=== PATIENT | male | born 1975 | race American Indian/Alaskan Native ===

== ENCOUNTER 2017-01-23 00:54 | Emergency (ER) | payer MEDICAID ==
[2017-01-23 00:54] VITALS: BMI 28.1
[2017-01-23 01:27] VITALS: RESP 16; TEMP 97.8
--- NOTE | 2017-01-23 02:22 | ED PDOC ---
HPI: Back Time Seen by Provider: 01/23/17 02:20 Chief Complaint (Nursing): Back Pain Chief Complaint (Provider): heroin abuse History Per: Patient Additional Complaint(s): pt states he called ems tonight because he took too much heroin. denies specific c/o at this time. Past Medical History Reviewed: Historical Data, Nursing Documentation, Vital Signs Vital Signs: Last Vital Signs Temp 97.8 F 01/23/17 01:25 Pulse 74 01/23/17 01:25 Resp 16 01/23/17 01:25 BP 92/60 L 01/23/17 01:25 Pulse Ox 95 01/23/17 01:25 - Medical History PMH: Anxiety, Bipolar Disorder, Depression, Personality Disorder, Pneumonia, Schizophrenia, Seizures - Family History Family History: States: No Known Family Hx - Social History Current smoker - smoking cessation education provided: No Alcohol: Social Drugs: Opiates - Immunization History Hx Tetanus Toxoid Vaccination: No Hx Influenza Vaccination: No Hx Pneumococcal Vaccination: No - Home Medications Home Medications: Ambulatory Orders Medication Instructions Recorded Carbamazepine [Tegretol Xr] 200 mg PO TID #90 ter 05/18/15 Phenobarbital 64.8 mg PO BID #20 tab 05/18/15 Phenobarbital 60 mg PO BID #14 tab 06/15/15 carBAMazepine [TEGretol] 200 mg PO TID #20 tab 06/15/15 APAP/Dm Hydrobrom/Phenyleph 1 sgl PO Q6H PRN #20 sgl 06/27/15 [Dayquil Cold/Flu 325 mg-10 mg-5 mg] - Allergies Allergies/Adverse Reactions: Allergies Allergy/AdvReac Type Severity Reaction Status Date / Time haloperidol [From Haldol] AdvReac NAUSEA Verified 01/23/17 01:20 Review of Systems ROS Statement: Except As Marked, All Systems Reviewed And Found Negative Physical Exam - Reviewed Nursing Documentation Reviewed: Yes Vital Signs Reviewed: Yes - Physical Exam Appears: Positive for: Non-toxic, No Acute Distress Head Exam: Positive for: ATRAUMATIC, NORMAL INSPECTION, NORMOCEPHALIC Skin: Positive for: Normal Color, Warm, DRY Eye Exam: Positive for: EOMI (pinpoint pupils B/L) ENT: Positive for: Normal ENT Inspection Neck: Positive for: Normal, Painless ROM Cardiovascular/Chest: Positive for: Regular Rate, Rhythm Respiratory: Positive for: CNT, Normal Breath Sounds Gastrointestinal/Abdominal: Positive for: Normal Exam, Bowel Sounds, Soft. Negative for: Tenderness Extremity: Positive for: Normal ROM. Negative for: Tenderness Neurologic/Psych: Positive for: Oriented, Motor/Sensory Deficits, Other (drowsy , intoxicated) - ECG O2 Sat by Pulse Oximetry: 95 ED OBSERVATION Date of observation admission: 01/23/17 Time of observation admission: 02:25 - Observation admission statement Patient is being placed in observation because:: heroin abuse - Goals of Observation Goals of observation are:: sobriety - Progress Note Progress Note: 01/23/17 05:34 pt observed in ED for 4h w/o event. pt ambulatory steady gait. no signs of withdrawl. Disposition - Clinical Impression Clinical Impression: Heroin abuse - Patient ED Disposition Is Patient to be Admitted: No - Disposition Referrals: [facility] [Outside] Disposition: Routine/Home Disposition Time: 05:35 Condition: GOOD Instructions: Narcotic Abuse (ED)
[2017-01-23 05:25] VITALS: BP 108/55; PULSE 62; O2SAT 95
== END 2017-01-23 06:48 | disposition home or self-care (01) ==
LOC: H.ER 00:54
DX: F11.10 Opioid abuse, uncomplicated (principal); M54.9 Dorsalgia, unspecified; F20.9 Schizophrenia, unspecified; F31.9 Bipolar disorder, unspecified; F41.9 Anxiety disorder, unspecified

== ENCOUNTER 2017-04-12 13:57 | Observation (INO) | payer MEDICAID ==
[2017-04-12 13:57] VITALS: BMI 27.4
[2017-04-12] MEDS ORDERED: Sodium Chloride 0.9% 1,000 ML IV STA (14:20)
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
[2017-04-12 14:37] LABS: BASO # 0.1 K/uL (0.0-0.2); BASO % 0.8 % (0.0-2.0); EOS # 0.1 K/uL (0.0-0.7); EOS % 1.8 % (0.0-4.0); HEMOGLOBIN 13.1 g/dL (12.0-18.0); LYMPH # 1.4 K/uL (1.0-4.3); LYMPH % 21.6 % (20.0-40.0); MEAN CELL VOLUME 88.2 fl (80.0-94.0); MEAN CORPUSCULAR HEMOGLOBIN 29.4 pg (27.0-31.0); MEAN CORPUSCULAR HGB CONC 33.3 g/dL (33.0-37.0); MEAN PLATELET VOLUME 9.8 fl (7.2-11.7); MONO # 0.7 K/uL (0.0-0.8); MONO % 10.8 % (0.0-10.0); NEUT # 4.1 K/uL (1.8-7.0); RBC 4.44 Mil/uL (4.40-5.90); RED CELL DISTRIBUTION WIDTH 13.3 % (11.5-14.5); WHITE BLOOD COUNT 6.3 K/uL (4.8-10.8)
[2017-04-12] MEDS ORDERED: Naloxone 0.4 mg/ml Inj (Adult) IVP ONE (14:40)
[2017-04-12] MEDS ORDERED: Naloxone 0.4 mg/ml Inj (Adult) ONE (14:43)
[2017-04-12 14:52] LABS: BLOOD UREA NITROGEN 14 mg/dl (9-20); CALCIUM 9.1 mg/dL (8.4-10.2); GFR AFRICAN-AMERICAN > 60; GFR NON-AFRICAN AMERICAN > 60
[2017-04-12 17:55] LABS: SQUAMOUS EPITHIAL < 1 /hpf (0-5); URINE BILIRUBIN NEGATIVE (NEGATIVE); URINE BLOOD LARGE (NEGATIVE); URINE CLARITY SLIGHTY-CLOUDY (Clear); URINE COLOR AMBER (YELLOW); URINE GLUCOSE (UA) NEG (Normal); URINE LEUKOCYTE ESTERASE NEG Leu/uL (Negative); URINE NITRATE NEGATIVE (NEGATIVE); URINE PROTEIN 30 mg/dL (NEGATIVE); URINE UROBILINOGEN 0.2-1.0 mg/dL (0.2-1.0)
[2017-04-12 17:58] LABS: BARBITURATES, UR POSITIVE (NEGATIVE); BENZODIAZEPINES, UR NEGATIVE (NEGATIVE); OPIATES, UR POSITIVE (NEGATIVE); PHENCYCLIDINE, UR NEGATIVE (NEGATIVE)
--- NOTE | 2017-04-12 19:33 | ED PDOC ---
- Laboratory Results Result Diagrams: 04/12/17 14:30 04/12/17 14:30 - ECG O2 Sat by Pulse Oximetry: 95 (RA) Pulse Ox Interpretation: Normal Medical Decision Making Medical Decision Making: Time: 19:00 Initial impression: Substance abuse --Patient was transferred from Dr. Wynne to mi. --Pending blood work up. 815PM: Pt. has high CPK. PT. denies cocaine/crack abuse, states he only abuses heroin. Denies recent strenuous physical activity. Scribe Attestation: Documented by Lashaun Barclay, acting as a scribe for Jose Alfredo Johnson MD. Provider Scribe Attestation: All medical record entries made by the Scribe were at my direction and personally dictated by me. I have reviewed the chart and agree that the record accurately reflects my personal performance of the history, physical exam, medical decision making, and the department course for this patient. I have also personally directed, reviewed, and agree with the discharge instructions and disposition. Disposition - Clinical Impression Clinical Impression: Substance abuse, Rhabdomyolysis - POA Present On Arrival: None - Disposition Disposition: Hospitalized as Observation Patient Disposition Time: 20:15 Condition: STABLE
[2017-04-12] MEDS: Sodium Chloride 0.9% 2,000 ML IV SCH ×2 (20:17→21:51)
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
[2017-04-12 21:06] VITALS: TEMP 98.5
[2017-04-12] MEDS: Sodium Chloride 0.9% 1,000 ML IV SCH (22:37)
[2017-04-13 00:24] VITALS: O2SAT 96
[2017-04-13] MEDS: Sodium Chloride 0.9% 2,000 ML IV SCH ×4 (02:00→05:13)
[2017-04-13] MEDS: Sodium Chloride 0.9% 1,000 ML IV SCH ×2 (03:12→09:16)
[2017-04-13 07:43] VITALS: BP 121/73; PULSE 58; RESP 20
[2017-04-13 09:27] LABS: HEMOGLOBIN 12.6 g/dL (12.0-18.0); MEAN CELL VOLUME 89.5 fl (80.0-94.0); MEAN CORPUSCULAR HEMOGLOBIN 29.3 pg (27.0-31.0); MEAN CORPUSCULAR HGB CONC 32.8 g/dL (33.0-37.0); RBC 4.3 Mil/uL (4.40-5.90); RED CELL DISTRIBUTION WIDTH 13.4 % (11.5-14.5); WHITE BLOOD COUNT 4.1 K/uL (4.8-10.8)
--- NOTE | 2017-04-13 09:38 | CP.PCM.PN ---
Subjective - Date & Time of Evaluation Date of Evaluation: 04/13/17 Time of Evaluation: 09:30 - Subjective Subjective: Patient seen and evaluated bedside. Feeling weak and tired . Hemodynamically stable, afebrile CPk elevated [id number] Objective - Vital Signs/Intake and Output Vital Signs (last 24 hours): Temp Pulse Resp BP Pulse Ox 98.5 F 58 L 20 121/73 96 04/13/17 07:42 04/13/17 08:20 04/13/17 07:42 04/13/17 08:20 04/13/17 07:42 - Medications Medications: Current Medications Acetaminophen (Tylenol 325mg Tab) 650 mg PO Q4 PRN PRN Reason: Headache Acetaminophen (Tylenol 325mg Tab) 650 mg PO Q4 PRN PRN Reason: Pain, Mild (1-3) Clonidine HCl (Catapres) 0.1 mg PO BID [facility] Last Admin: 04/13/17 08:20 Dose: Not Given Famotidine (Pepcid) 20 mg PO BID [facility] Last Admin: 04/13/17 08:16 Dose: 20 mg Sodium Chloride (Sodium Chloride 0.9%) 2,000 mls @ 1,000 mls/hr IV .Q2H [facility] Stop: 04/13/17 19:59 Last Admin: 04/13/17 05:13 Dose: Not Given Sodium Chloride (Sodium Chloride 0.9%) 1,000 mls @ 150 mls/hr IV .Q6H40M [facility] Stop: 04/13/17 21:24 Last Admin: 04/13/17 03:12 Dose: 150 mls/hr Lorazepam (Ativan) 0.5 mg IVP Q6 PRN PRN Reason: Agitation Last Admin: 04/13/17 08:16 Dose: 0.5 mg Ondansetron HCl (Zofran Inj) 4 mg IVP Q4 PRN PRN Reason: Nausea/Vomiting - Labs Labs: 04/12/17 14:30 04/12/17 14:30 - Constitutional Appears: Non-toxic, No Acute Distress, Older Than Stated Age - Head Exam Head Exam: ATRAUMATIC, NORMAL INSPECTION, NORMOCEPHALIC - Eye Exam Eye Exam: EOMI, Normal appearance, PERRL Pupil Exam: NORMAL ACCOMODATION - ENT Exam ENT Exam: Mucous Membranes Moist, Normal Exam - Neck Exam Neck Exam: Full ROM, Normal Inspection - Respiratory Exam Respiratory Exam: Clear to Ausculation Bilateral, NORMAL BREATHING PATTERN. absent: Rales, Rhonchi, Wheezes - Cardiovascular Exam Cardiovascular Exam: REGULAR RHYTHM, RRR, +S1, +S2. absent: JVD - GI/Abdominal Exam GI & Abdominal Exam: Soft, Normal Bowel Sounds. absent: Distended, Guarding, Tenderness, Rebound - Rectal Exam Rectal Exam: Deferred - Extremities Exam Extremities Exam: Full ROM, Normal Capillary Refill, Normal Inspection. absent : Calf Tenderness, Pedal Edema - Neurological Exam Neurological Exam: Alert, Awake, CN II-XII Intact, Oriented x3 - Psychiatric Exam Psychiatric exam: Flat Affect - Skin Skin Exam: Dry, Normal Color, Warm Assessment and Plan - Assessment and Plan (Free Text) Assessment: 41 years old male last admitted on 04/10/17 at the Psych Unit of the [facility] and Signed AMA on 04/11/17 with diagnosis of Schizoaffective disorder and Opiate use disorder. He was seen at the ED on the AM of 04/12/17 with back pain. He absconded before being discharged. He is now brought again to the [facility] ED by EMS because of Coffee ground vomitus. He admitted to using 2 bags of Heroin today,Labs showed elevated CPK. 1, Rhabdomyolisis drug induced. Patient on Phenobarbital and used Heroin Continue IV Fluid NS 200/hr CPK trended down but stillelevated [id number] Follow CPK 2. Poly-substance abuse Ativan PRN for withdrawal agitation Clonidine for Blood Pressure Elevation 3. Coffee ground vomitus no episodes of vomiting during hospuitalization on Zofran H& H stable Continue famotidine 4.Anxiety and Depressive disorder consult Psychiatry Dr Nogueira 5. Hx Of Seizure disorder phenobarbital on hold Seizure precautions 6. DVt prophylaxis SCD
[2017-04-13 09:45] LABS: BLOOD UREA NITROGEN 12 mg/dl (9-20); CALCIUM 8.5 mg/dL (8.4-10.2); GFR AFRICAN-AMERICAN > 60; GFR NON-AFRICAN AMERICAN > 60
[2017-04-13] MEDS ORDERED: Sodium Chloride 0.9% 1,000 ML IV SCH (14:08)
--- NOTE | 2017-04-13 14:35 | CARD ---
APPROVED REPORT EKG Measurement Heart [id number] <Conclusion> Normal sinus rhythm Nonspecific T wave abnormality Abnormal ECG
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
--- NOTE | 2017-04-13 19:43 | CP.PCM.DIS ---
Provider - Provider Date of Admission: 04/12/17 14:26 Attending physician: Eduardo Navarro Consults: psych consult Time Spent in preparation of Discharge (in minutes): 20 Hospital Course - Lab Results Lab Results: Most Recent Lab Values WBC 4.1 K/uL (4.8-10.8) L 04/13/17 08:45 RBC 4.30 Mil/uL (4.40-5.90) L 04/13/17 08:45 Hgb 12.6 g/dL (12.0-18.0) 04/13/17 08:45 Hct 38.5 % (35.0-51.0) 04/13/17 08:45 MCV 89.5 fl (80.0-94.0) 04/13/17 08:45 MCH 29.3 pg (27.0-31.0) 04/13/17 08:45 MCHC 32.8 g/dL (33.0-37.0) L 04/13/17 08:45 RDW 13.4 % (11.5-14.5) 04/13/17 08:45 Plt Count 157 K/uL (130-400) 04/13/17 08:45 MPV 9.8 fl (7.2-11.7) 04/12/17 14:30 Neut % (Auto) 65.0 % (50.0-75.0) 04/12/17 14:30 Lymph % (Auto) 21.6 % (20.0-40.0) 04/12/17 14:30 [place] % (Auto) 10.8 % (0.0-10.0) H 04/12/17 14:30 Eos % (Auto) 1.8 % (0.0-4.0) 04/12/17 14:30 Baso % (Auto) 0.8 % (0.0-2.0) 04/12/17 14:30 Neut # 4.1 K/uL (1.8-7.0) 04/12/17 14:30 Lymph # 1.4 K/uL (1.0-4.3) 04/12/17 14:30 [place] # 0.7 K/uL (0.0-0.8) 04/12/17 14:30 Eos # 0.1 K/uL (0.0-0.7) 04/12/17 14:30 Baso # 0.1 K/uL (0.0-0.2) 04/12/17 14:30 Sodium 141 mmol/l (132-148) 04/13/17 08:45 Potassium 3.8 MMOL/L (3.6-5.0) 04/13/17 08:45 Chloride 108 mmol/L (98-107) H 04/13/17 08:45 Carbon Dioxide 27 mmol/L (22-30) 04/13/17 08:45 Anion Gap 10 (10-20) 04/13/17 08:45 BUN 12 mg/dl (9-20) 04/13/17 08:45 Creatinine 0.8 mg/dL (0.8-1.5) 04/13/17 08:45 Est GFR ( Amer) > 60 04/13/17 08:45 Est GFR (Non-Af Amer) > 60 04/13/17 08:45 Random Glucose 156 mg/dL (75-110) H 04/13/17 08:45 Calcium 8.5 mg/dL (8.4-10.2) 04/13/17 08:45 Total Creatine Kinase 77947 U/L (55-170) H 04/13/17 08:45 Urine Color Alicia (YELLOW) 04/12/17 17:30 Urine Clarity Slighty-cloudy (Clear) 04/12/17 17:30 Urine pH 5.0 (5.0-8.0) 04/12/17 17:30 Ur Specific [place] 1.018 (1.003-1.030) 04/12/17 17:30 Urine Protein 30 mg/dL (NEGATIVE) 04/12/17 17:30 Urine Glucose (UA) Neg mg/dL (Normal) 04/12/17 17:30 Urine Ketones Negative mg/dL (NEGATIVE) 04/12/17 17:30 Urine Blood Large (NEGATIVE) 04/12/17 17:30 Urine Nitrate Negative (NEGATIVE) 04/12/17 17:30 Urine Bilirubin Negative (NEGATIVE) 04/12/17 17:30 Urine Urobilinogen 0.2-1.0 mg/dL (0.2-1.0) 04/12/17 17:30 Ur Leukocyte Esterase Neg Elsie/uL (Negative) 04/12/17 17:30 Urine RBC (Auto) < 1 /hpf (0-3) 04/12/17 17:30 Urine Microscopic WBC 1 /hpf (0-5) 04/12/17 17:30 Ur Squamous Epith Cells < 1 /hpf (0-5) 04/12/17 17:30 Urine Opiates Screen Positive (NEGATIVE) H 04/12/17 17:22 Urine Methadone Screen Negative (NEGATIVE) 04/12/17 17:22 Ur Barbiturates Screen Positive (NEGATIVE) H 04/12/17 17:22 Ur Phencyclidine Scrn Negative (NEGATIVE) 04/12/17 17:22 Ur Amphetamines Screen Negative (NEGATIVE) 04/12/17 17:22 U Benzodiazepines Scrn Negative (NEGATIVE) 04/12/17 17:22 U Oth Cocaine Metabols Negative (NEGATIVE) 04/12/17 17:22 U Cannabinoids Screen Negative (NEGATIVE) 04/12/17 17:22 Alcohol, Quantitative < 10 mg/dl (0-10) 04/12/17 14:30 - Hospital Course Hospital Course: 41 years old male last admitted on 04/10/17 at the Psych Unit of the [facility] and Signed AMA on 04/11/17 with diagnosis of Schizoaffective disorder and Opiate use disorder. He was seen at the ED on the AM of 04/12/17 with back pain. He absconded before being discharged. He is now brought again to the [facility] ED by EMS because of Coffee ground vomitus. He admitted to using 2 bags of Heroin today,Labs showed elevated CPK. Patient was admitted and started on IVF .Patient is AAOx3 , denies being suicidal or homicidal. Decided to sign AMA 1, Rhabdomyolisis drug induced. Patient on Phenobarbital and used Heroin Continue IV Fluid NS 200/hr CPK trended down but stillelevated [id number] Follow CPK 2. Poly-substance abuse Ativan PRN for withdrawal agitation Clonidine for Blood Pressure Elevation 3. Coffee ground vomitus no episodes of vomiting during hospuitalization on Zofran H& H stable Continue famotidine 4.Anxiety and Depressive disorder consult Psychiatry Dr Nogueira 5. Hx Of Seizure disorder phenobarbital on hold Seizure precautions 6. DVt prophylaxis SCD Discharge Exam - Head Exam Head Exam: ATRAUMATIC, NORMAL INSPECTION, NORMOCEPHALIC Discharge Plan - Follow Up Plan Condition: STABLE Disposition: AGAINST MEDICAL ADVICE Instructions: Rhabdomyolysis (DC)
== END 2017-04-13 15:35 | disposition left against medical advice (07) ==
LOC: H.ER 13:57 → H.EROBSV 14:26 → H.ERHOLD 20:24 → H.MEDSURG1 22:06
PROVIDERS: ADMIT Internal Medicine; ATTEND Internal Medicine
DX: M62.82 Rhabdomyolysis (principal); F11.20 Opioid dependence, uncomplicated; F25.9 Schizoaffective disorder, unspecified; F31.9 Bipolar disorder, unspecified; F41.8 Other specified anxiety disorders; F19.10 Other psychoactive substance abuse, uncomplicated; F60.9 Personality disorder, unspecified; G40.909 Epilepsy, unspecified, not intractable, without status epilepticus; I10 Essential (primary) hypertension; Z87.820 Personal history of traumatic brain injury; Z86.19 Personal history of other infectious and parasitic diseases; Z87.891 Personal history of nicotine dependence

== ENCOUNTER 2017-06-15 06:53 | Inpatient (IN) | payer MEDICAID ==
[2017-06-15 06:53] VITALS: BMI 18.6
[2017-06-15 07:02] VITALS: O2SAT 97
--- NOTE | 2017-06-15 07:02 | ED PDOC ---
Psych Transfer Clearance - Clearance Statement Clearance Statement: Reviewed vital signs, lab results and transfer papers. Patient clinically stable for psychiatric admission.
[2017-06-15 09:15] VITALS: RESP 18; TEMP 97.5
[2017-06-15] MEDS ORDERED: DiphenhydrAMINE 50 mg/ml Inj IM PRN (09:56)
--- NOTE | 2017-06-15 14:58 | PCM.PSYCH ---
Initial Psychiatric Evaluation - Initial Psychiatric Evaluation Chief Complaint (in patient's own words): i need help to get back on my medications Patient's Reaction to Hospitalization: agreed History of Present Illness and Precipitating Events: pt with previous history of schizophrenia and alcohol use disorder non compliant with medications, became increasingly depressed and presented to ER seeking help Current Medications: Active Medications Generic Name Dose Route Start Last Admin Trade Name Freq PRN Reason Stop Dose Admin Chlorpromazine 25 mg 06/15/17 11:00 Thorazine IM Q6H PRN Agitation Diphenhydramine HCl 50 mg 06/15/17 09:56 Benadryl IM Q6 PRN Agitation Olanzapine 5 mg 06/15/17 09:45 Zyprexa PO BID CORNELIUS Past Psychiatric History - Past Psychiatric History Pertinent Medical Hx (Current Medical&Sleep Prob, Allergies): Allergies Allergy/AdvReac Type Severity Reaction Status Date / Time lactose Allergy DIARRHEA Verified 06/15/17 06:54 fluphenazine [From Prolixin] AdvReac SWELLING Verified 06/15/17 06:54 haloperidol [From Haldol] AdvReac NAUSEA Verified 06/15/17 06:54 Phenobarbital [PHENobarbital Tab] 64.8 mg PO DAILY 04/15/17 Phenobarbital [PHENobarbital Tab] 97.2 mg PO DAILY 04/15/17 Acetaminophen [Tylenol 325mg tab] 325 mg PO Q6 06/14/17 Carbamazepine [Carbatrol] 200 mg PO DAILY 06/14/17 DULoxetine [Cymbalta] 30 mg PO BID 06/14/17 Lisinopril [Zestril] 10 mg PO DAILY 06/14/17 Melatonin [Melatin 3 mg-1 mg] 1 tab PO DAILY 06/14/17 Nicotine Polacrilex [[facility] Nicotine Polacrilex] 4 mg PO DAILY 06/14/17 Nicotine [Nicotine Patch] 1 each TD DAILY 06/14/17 lamoTRIgine [LaMICtal] 100 mg PO BID 06/14/17 Mental Status Examination - Personal Presentation Personal Presentation: Looks stated age Additional comments: appears disheveled - Affect Affect: Depressed - Motor Activity Motor Activity: Psychomotor Agitation - Reliability in Providing Information Reliability in Providing Information: Poor, due to altered mood - Speech Speech: Tangential - Mood Mood: Depressed, Anxious - Formal Thought Process Formal Thought Process: Paranoia - Hallucinations/Delusions Additional comments: denied any current perceptual disturbances denied command hallucinations - Obsessions/Compulsions Obsessions: No Compulsions: No - Cognitive Functions Orientation: Person, Place Attention/Concentration: Easily distracted Abstract Thinking: [place] Judgement: Imparied, as evidence by: Poor judgement Memory: Recent intact, as evidence by: 11/07 object recall - Risk Risk: Diminished functioning Additional comments: patient denied any current suicidal or homicidal ideations denied command hallucinations - Strength & Assets Inventory Strength & Assets Inventory: Cooperative DSM 5 DX - DSM 5 DSM 5 Diagnosis: schizophrenia start zyprexa and 10 mg pt will be followed for psychopharmacological effects and side effect profile - Smoking Cessation Smoking Cessation Initiated: No
[2017-06-15] MEDS ORDERED: Magnesium Hydroxide Susp 30 ml UD PO PRN (15:34)
[2017-06-15] MEDS ORDERED: Alum-Mag Hydrox-Simethicone Susp (30 mL) PO PRN (15:34)
[2017-06-15 16:53] VITALS: PULSE 67
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
--- NOTE | 2017-06-15 18:09 | PCM.BM ---
Treatment Plan Problems - Problems identified on initial assessmt Feelings of Worthlessness Date Initiated: 06/15/17 Time Initiated: 11:00 Assessment reference: NA Status: Active Treatment assets and liabiliti Patient Assests: adapts well, cooperative, self-reliant, ADL independent, negotiates basic needs, cognitively intact, other Patient Liabilities: financial problems, poor support system, substance abuse - Milieu Protocol Maintain good personal hygiene: daily Encourage regular showers, daily Remind patient to perform daily oral care, daily Assist patient to perform ADL's Conduct patient checks and document Observation sheet: Q15 minutes Maintain personal safety: every shift Educate patient to report safety concerns to staff, every shift Monitor environment for contraband/sharps Medication safety: Monitor for expected outcome, potential side effects: every shift, Assess barriers to learning: every shift, Assess readiness for medication education: every shift
[2017-06-16 09:00] VITALS: BP 131/77
[2017-06-16] MEDS ORDERED: Patient's Own Med (Melatonin [Melatin] 1 TAB) PO SCH (09:00)
[2017-06-16] MEDS ORDERED: NICOTINE POLACRILEX 4 MG PO SCH (09:00)
[2017-06-16] MEDS ORDERED: CARBAMAZEPINE 200 MG PO SCH (09:00)
--- NOTE | 2017-06-16 13:53 | PCM.PYCHDC ---
Mental Status Examination - Mental Status Examination Orientation: Person, Place, Situation, Time Memory: Intact Mood: Neutral Affect: Constricted Speech: Appropriate Attention: WNL Concentration: WNL Association: WNL Fund of Knowledge: WNL Formal Thought Process: No Impairment Description of patient's judgement and insight: partial insight , poor judgment Psychotic Thoughts and Behaviors: patient denied any delisions or hallucinations , non ellicited Suicidal Ideation: No Current Homicidal Ideation?: No Discharge Summary - Discharge Note Reason for Hospitalization: agreedpt presented to [facility] feeling increasingly depressed related to being homeless and having financial stressors and lack of access to psychiatric care Psychiatric History (includes Medical, Family, Personal Hx): pt with previous psychiatric diagnosis of schizophrenia and polysubstance u Consultations:: List each consultation separately and include: 1. Reason for request. 2. Findings. 3. Follow-up Summary of Hospital Course include:: 1. Description of specific treatment plan utilized for patients during their course of treatmen. 2. Summarize the time- course for resolution of acute symptoms and/or regressed behaviors. 3. Describe issues identified and worked on during hospitalization. 4. Describe medication utilized. 5. Describe medical problems identified and treated. 6. Reassessment of suicide risk Summary of Hospital Course: pt with previous history of schizophrenia and alcohol use disorder non compliant with medications, became increasingly depressed and presented to ER seeking help pt on admission reported non command auditory hallucination and depressed mood patient was started on zyprexa 10mg daily for psychosis and duloxetine for depression patient requested to be disscharged on second day of admission pt was advised to continue in hospital to be monitored for psychopharmacological effets and side effects profile, patient however declined pt was also educated about risk of relapse patient declined to stay and signed against medical advise patient at current mental status denied suicidal or homicidal ideations, denied perceptual disturbances denied command hallucinations, will be discharged with advisafter care plan to follow up at [id number] - Diagnosis (1) Schizophrenia Current Visit: Yes Status: Chronic (2) Schizophrenia Current Visit: Yes Status: Chronic (3) Alcohol abuse Current Visit: No Status: Chronic - Final Diagnosis (DSM 5) Condition upon Discharge: STABLE DSM 5: schizophrenia alcohol use disorder Disposition: HOME/ ROUTINE Follow-up Treatment Plan: [id number] outpatient - Smoking Cessation Smoking Cessation Medication prescribed: No Reason for not providing: patient refused - Antipsychotic Medications Pt discharged on 2 or more routine antipsychotic medications: No
== END 2017-06-16 11:30 | disposition home or self-care (01) | DRG 430 ==
LOC: H.ER 06:56 → H.ERHOLD 07:01 → H.PSYCH 07:29
PROVIDERS: ADMIT Psychiatry & Neurology Psychiatry; ATTEND Psychiatry & Neurology Psychiatry
PROC: GZHZZZZ Group Psychotherapy (ICD-10-PCS; principal; 2017-06-15)
PROC: GZ58ZZZ Individual Psychotherapy, Cognitive-Behavioral (ICD-10-PCS; 2017-06-15)
DX: F20.0 Paranoid schizophrenia (principal); F10.10 Alcohol abuse, uncomplicated; B19.20 Unspecified viral hepatitis C without hepatic coma; G40.909 Epilepsy, unspecified, not intractable, without status epilepticus; I10 Essential (primary) hypertension; F17.210 Nicotine dependence, cigarettes, uncomplicated; Z91.14 Patient's other noncompliance with medication regimen; Z91.5 Personal history of self-harm; Z59.0 Homelessness; Z87.01 Personal history of pneumonia (recurrent); Z91.011 Allergy to milk products; Z88.8 Allergy status to other drugs, medicaments and biological substances

== ENCOUNTER 2017-09-26 17:31 | Emergency (ER) | payer MEDICAID ==
[2017-09-26 17:31] VITALS: BMI 18.6
--- NOTE | 2017-09-26 17:51 | ED PDOC ---
HPI: Seizure Time Seen by Provider: 09/26/17 17:36 Chief Complaint (Nursing): Seizure History Per: Patient Recent Seizure Activity Began: Unknown Length Of Seizures (Duration): Unknown Post-ictal Period: Duration Unknown Additional Complaint(s): Brought by EMS after seizure episode reported by police. Witness not available to determine quality of seizure or duration. Pt states also depressed with SI but no specific plan. Also states used IV heroin today. Past Medical History Vital Signs: Last Vital Signs Temp 98 F 09/26/17 21:19 Pulse 58 L 09/26/17 21:19 Resp 20 09/26/17 21:19 BP 130/89 09/26/17 21:19 Pulse Ox 99 09/26/17 22:32 - Medical History PMH: Anxiety, Bipolar Disorder, Depression, HIV, HTN, Personality Disorder, Pneumonia, Schizophrenia, Seizures Denies: Diabetes, Hepatitis, Chronic Kidney Disease, Sexually Transmitted Disease - Family History Family History: States: Unknown Family Hx - Immunization History Hx Tetanus Toxoid Vaccination: No Hx Influenza Vaccination: Yes (states ''in [place]'') Hx Pneumococcal Vaccination: No - Home Medications Home Medications: Ambulatory Orders Medication Instructions Recorded Phenobarbital [PHENobarbital Tab] 64.8 mg PO DAILY 04/15/17 Phenobarbital [PHENobarbital Tab] 97.2 mg PO DAILY 04/15/17 Carbamazepine [Carbatrol] 200 mg PO DAILY 06/14/17 Lisinopril [Zestril] 10 mg PO DAILY 06/14/17 Melatonin [Melatin 3 mg-1 mg] 1 tab PO DAILY 06/14/17 Nicotine [Nicotine Patch] 1 each TD DAILY 06/14/17 lamoTRIgine [LaMICtal] 100 mg PO BID 06/14/17 - Allergies Allergies/Adverse Reactions: Allergies Allergy/AdvReac Type Severity Reaction Status Date / Time lactose Allergy DIARRHEA Verified 09/26/17 23:57 fluphenazine [From Prolixin] AdvReac SWELLING Verified 09/26/17 23:57 haloperidol [From Haldol] AdvReac NAUSEA Verified 09/26/17 23:57 Review of Systems ROS Statement: Except As Marked, All Systems Reviewed And Found Negative Neurological: Positive for: Seizures Psych: Positive for: Depression, Suicidal ideation Physical Exam - Reviewed Nursing Documentation Reviewed: Yes Vital Signs Reviewed: Yes - Physical Exam Appears: Positive for: Non-toxic, No Acute Distress Head Exam: Positive for: ATRAUMATIC, NORMAL INSPECTION, NORMOCEPHALIC Skin: Positive for: Normal Color, Warm, DRY Eye Exam: Positive for: EOMI, Normal appearance, PERRL ENT: Positive for: Normal ENT Inspection Neck: Positive for: Normal, Painless ROM Cardiovascular/Chest: Positive for: Regular Rate, Rhythm Respiratory: Positive for: CNT, Normal Breath Sounds Gastrointestinal/Abdominal: Positive for: Normal Exam, Bowel Sounds, Soft Back: Positive for: Normal Inspection Extremity: Positive for: Other (Multiple old lacerations ? trak merino forearms bilat.) Neurologic/Psych: Positive for: Alert, Oriented. Negative for: Motor/Sensory Deficits - Laboratory Results Result Diagrams: 09/26/17 18:48 09/26/17 18:48 - ECG O2 Sat by Pulse Oximetry: 99 Disposition - Clinical Impression Clinical Impression: Seizure disorder, Drug abuse - Patient ED Disposition Is Patient to be Admitted: Transfer of Care - Disposition Referrals: [facility] [Outside] Disposition: Transfer of Care Disposition Time: 19:00 Condition: STABLE Additional Instructions: Patient is medically and psychiatrically cleared for incarceration. Instructions: Narcotic Abuse (ED), Recurrent Seizures in Children (ED) Forms: [employer] (Tuvaluan) Patient Signed Over To: Jose Alfredo Johnson
--- NOTE | 2017-09-26 18:53 | CT ---
EXAM: CT Head Without Intravenous Contrast CLINICAL HISTORY: 41 years old, male; Injury or trauma; Fall; Initial encounter; Laceration; Consciousness not specified; Without residual foreign body; Head, generalized; Injury date: Today; Additional info: R/O bleed TECHNIQUE: Axial computed tomography images of the head/brain without intravenous contrast. All CT scans at this facility use one or more dose reduction techniques, viz.: automated exposure control; ma/kV adjustment per patient size (including targeted exams where dose is matched to indication; i.e. head); or iterative reconstruction technique. Coronal and sagittal reformatted images were created and reviewed. COMPARISON: CT - HEAD W/O CONTRAST 2015-02-02 18:03 FINDINGS: Brain: Ctnk-rx-[id number] atrophy. No intracranial hemorrhage. No mass. Xfgo-ed-euqsqqsa encephalomalacia within left occipital parietal region. No edema. Ventricles: No hydrocephalus. Bones/joints: No acute fracture. Soft tissues: Mild scalp swelling. Sinuses: Scattered minimal mucosal thickening. Mastoid air cells: No mastoid effusion. Orbits: Unremarkable as visualized. IMPRESSION: 1. No intracranial hemorrhage. 2. Incidental/non-acute findings are described above.
[2017-09-26 19:00] LABS: BASO # 0.1 K/uL (0.0-0.2); BASO % 1.4 % (0.0-2.0); EOS # 0.2 K/uL (0.0-0.7); EOS % 3.4 % (0.0-4.0); HEMOGLOBIN 12.3 g/dL (12.0-18.0); LYMPH # 2.2 K/uL (1.0-4.3); LYMPH % 38.4 % (20.0-40.0); MEAN CELL VOLUME 87.4 fl (80.0-94.0); MEAN CORPUSCULAR HEMOGLOBIN 28.3 pg (27.0-31.0); MEAN CORPUSCULAR HGB CONC 32.4 g/dL (33.0-37.0); MEAN PLATELET VOLUME 9.3 fl (7.2-11.7); MONO # 0.5 K/uL (0.0-0.8); MONO % 8.6 % (0.0-10.0); NEUT # 2.8 K/uL (1.8-7.0); NEUT % 48.2 % (50.0-75.0); RBC 4.34 Mil/uL (4.40-5.90); RED CELL DISTRIBUTION WIDTH 13.5 % (11.5-14.5); WHITE BLOOD COUNT 5.7 K/uL (4.8-10.8)
[2017-09-26 19:10] LABS: ALB/GLOB RATIO 1.3 (1.0-2.1); ALBUMIN 4.1 g/dL (3.5-5.0); ALT/SGPT 44 U/L (21-72); AST/SGOT 27 U/L (17-59); BLOOD UREA NITROGEN 12 mg/dl (9-20); CALCIUM 8.9 mg/dL (8.4-10.2); GFR AFRICAN-AMERICAN > 60; GFR NON-AFRICAN AMERICAN > 60
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
[2017-09-26 20:51] LABS: BENZODIAZEPINES, UR NEGATIVE (NEGATIVE); PHENCYCLIDINE, UR NEGATIVE (NEGATIVE)
[2017-09-26 21:00] LABS: BARBITURATES, UR POSITIVE (NEGATIVE); OPIATES, UR POSITIVE (NEGATIVE)
[2017-09-26 21:20] VITALS: BP 130/89; PULSE 58; RESP 20; TEMP 98
[2017-09-26 22:31] VITALS: O2SAT 99
--- NOTE | 2017-09-27 08:39 | RAD ---
HISTORY: cough COMPARISON: Portable chest 02/02/2015. FINDINGS: LUNGS: No active pulmonary disease. PLEURA: No significant pleural effusion identified, no pneumothorax apparent. CARDIOVASCULAR: Normal. OSSEOUS STRUCTURES: No significant abnormalities. VISUALIZED UPPER ABDOMEN: Normal. OTHER FINDINGS: None. IMPRESSION: No interval acute cardiopulmonary disease appreciated.
--- NOTE | 2017-09-27 17:21 | CARD ---
APPROVED REPORT EKG Measurement Heart [id number] <Conclusion> Normal sinus rhythm Normal ECG
== END 2017-09-26 22:45 | disposition home or self-care (01) ==
LOC: H.ER 17:31
DX: G40.909 Epilepsy, unspecified, not intractable, without status epilepticus (principal); F20.9 Schizophrenia, unspecified; F31.9 Bipolar disorder, unspecified; F41.9 Anxiety disorder, unspecified; I10 Essential (primary) hypertension; F11.10 Opioid abuse, uncomplicated

== ENCOUNTER 2017-12-19 06:59 | Emergency (ER) | payer MEDICAID ==
[2017-12-19 06:59] VITALS: BMI 18.6
[2017-12-19 07:31] VITALS: RESP 18; TEMP 97.8; O2SAT 99
--- NOTE | 2017-12-19 08:15 | ED PDOC ---
HPI: Psych/Substance Abuse Time Seen by Provider: 12/19/17 07:07 Chief Complaint (Nursing): Abdominal Pain Chief Complaint (Provider): Abdominal Pain History Per: Patient History/Exam Limitations: no limitations Onset/Duration Of Symptoms: Hrs Current Symptoms Are (Timing): Still Present Suicide/Self Injury Attempted (Context): Other (feels like hurting himself) Modifying Factor(s): Narcotics (heroine) Additional Complaint(s): 42 y/o black male with a history of HTN and seizures presents to the ED complaining that he needs his seizure medication. Patient states he is having heroine withdrawal which was last used this morning. He states he feels like hurting himself. PMD: None provided Past Medical History Reviewed: Historical Data, Nursing Documentation, Vital Signs Vital Signs: Last Vital Signs Temp 97.8 F 12/19/17 07:26 Pulse 77 12/19/17 07:26 Resp 18 12/19/17 07:26 BP 148/103 H 12/19/17 07:26 Pulse Ox 99 12/19/17 07:26 - Medical History PMH: Anxiety, Bipolar Disorder, Depression, HTN, Personality Disorder, Pneumonia , Schizophrenia, Seizures Denies: Diabetes, Hepatitis, HIV, Chronic Kidney Disease, Sexually Transmitted Disease - Surgical History Surgical History: No Surg Hx - Family History Family History: States: Unknown Family Hx - Social History Drugs: Opiates (heroine) - Immunization History Hx Tetanus Toxoid Vaccination: No Hx Influenza Vaccination: Yes Hx Pneumococcal Vaccination: No - Home Medications Home Medications: Ambulatory Orders Medication Instructions Recorded Phenobarbital [PHENobarbital Tab] 64.8 mg PO DAILY 04/15/17 Phenobarbital [PHENobarbital Tab] 97.2 mg PO DAILY 04/15/17 Carbamazepine [Carbatrol] 200 mg PO DAILY 06/14/17 Lisinopril [Zestril] 10 mg PO DAILY 06/14/17 Melatonin [Melatin 3 mg-1 mg] 1 tab PO DAILY 06/14/17 Nicotine [Nicotine Patch] 1 each TD DAILY 06/14/17 lamoTRIgine [LaMICtal] 100 mg PO BID 06/14/17 Phenobarbital 60 mg PO BID #60 tab 10/08/17 carBAMazepine [TEGretol] 200 mg PO BID #60 tab 10/08/17 Phenobarbital 97.2 mg PO DAILY #30 tab 11/05/17 carBAMazepine [TEGretol-XR] 200 mg PO TID #90 ter 11/05/17 Divalproex [Depakote DR] 500 mg PO BID #30 tcp 12/03/17 QUEtiapine [SEROquel] 200 mg PO HS #15 tab 12/03/17 carBAMazepine [Tegretol] 200 mg PO BID #30 tab 12/03/17 Lisinopril [Zestril] 10 mg PO DAILY #7 tab 12/19/17 Phenobarbital 97.2 mg PO DAILY #7 tablet 12/19/17 carBAMazepine [TEGretol] 200 mg PO TID #21 tab 12/19/17 - Allergies Allergies/Adverse Reactions: Allergies Allergy/AdvReac Type Severity Reaction Status Date / Time lactose Allergy DIARRHEA Verified 12/19/17 01:38 fluphenazine [From Prolixin] AdvReac SWELLING Verified 12/19/17 01:38 haloperidol [From Haldol] AdvReac NAUSEA Verified 12/19/17 01:38 Review of Systems ROS Statement: Except As Marked, All Systems Reviewed And Found Negative Gastrointestinal: Positive for: Abdominal Pain Psych: Positive for: Other (feels like hurting himself) Physical Exam - Reviewed Nursing Documentation Reviewed: Yes Vital Signs Reviewed: Yes - Physical Exam Appears: Positive for: Well (sleeping comfortably), Non-toxic, No Acute Distress Head Exam: Positive for: ATRAUMATIC, NORMAL INSPECTION, NORMOCEPHALIC Skin: Positive for: Normal Color, Warm, Dry Eye Exam: Positive for: EOMI, Normal appearance, PERRL ENT: Positive for: Normal ENT Inspection Neck: Positive for: Normal, Painless ROM, Supple Cardiovascular/Chest: Positive for: Regular Rate, Rhythm. Negative for: Murmur Respiratory: Positive for: Normal Breath Sounds. Negative for: Respiratory Distress Gastrointestinal/Abdominal: Positive for: Normal Exam, Soft Back: Positive for: Normal Inspection. Negative for: L CVA Tenderness, R CVA Tenderness, Vertebral Tenderness Extremity: Positive for: Normal ROM. Negative for: Pedal Edema, Deformity Neurologic/Psych: Positive for: Alert (arousable to verbal stimuli), Oriented ( x3). Negative for: Motor/Sensory Deficits - ECG O2 Sat by Pulse Oximetry: 99 (RA) Pulse Ox Interpretation: Normal Medical Decision Making Medical Decision Making: Time: 7:26 Impression: polysubstance abuse Scribe Attestation: Documented by Stephani Rangel acting as a scribe Lisa Carlos MD. MD Shelton Attestation: All medical record entries made by the Scribe were at my direction and personally dictated by me. I have reviewed the chart and agree that the record accurately reflects my personal performance of the history, physical exam, medical decision making, and the department course for this patient. I have also personally directed, reviewed, and agree with the discharge instructions and disposition. Disposition - Clinical Impression Clinical Impression: Schizoaffective disorder, Heroin abuse - Disposition Referrals: [facility] [Outside] FAMILY PROVIDER,NO [Primary Care Provider] - Disposition: Routine/Home Disposition Time: 10:12 Condition: STABLE Prescriptions: carBAMazepine [TEGretol] 200 mg PO TID #21 tab Lisinopril [Zestril] 10 mg PO DAILY #7 tab Phenobarbital 97.2 mg PO DAILY #7 tablet Instructions: Schizoaffective Disorder, Drug Abuse and Drug Addiction (DC) Forms: [employer] (Occitan)
[2017-12-19 10:50] VITALS: BP 164/87; PULSE 89
== END 2017-12-19 10:57 | disposition home or self-care (01) ==
LOC: H.ER 06:59 → SUPCPDRO 06:59 → H.ER 10:57
DX: F25.9 Schizoaffective disorder, unspecified (principal); F11.10 Opioid abuse, uncomplicated; F31.9 Bipolar disorder, unspecified; F41.9 Anxiety disorder, unspecified; I10 Essential (primary) hypertension

== ENCOUNTER 2018-06-09 23:01 | Emergency (ER) | payer MEDICAID ==
[2018-06-09 23:01] VITALS: BMI 25.0
[2018-06-09 23:06] VITALS: BP 135/92; PULSE 80; RESP 18; TEMP 98.2; O2SAT 100
--- NOTE | 2018-06-09 23:56 | ED PDOC ---
HPI: Psych/Substance Abuse Time Seen by Provider: 06/09/18 23:04 Chief Complaint (Nursing): Alcohol Ingestion Chief Complaint (Provider): alcohol abuse History Per: Patient History/Exam Limitations: no limitations Onset/Duration Of Symptoms: Hrs (today) Current Symptoms Are (Timing): Still Present Additional Complaint(s): Bryon Irby is a 42 year old male, with history of alcohol abuse, who was brought to the emergency department by EMS for public intoxication. Patient has history of multiple previous visits to ED for the same. Upon arrival patient has slurred speech but denies any other medical complaints. PMD: None provided. Past Medical History Reviewed: Historical Data, Nursing Documentation, Vital Signs Vital Signs: Last Vital Signs Temp 98.2 F 06/09/18 23:03 Pulse 80 06/09/18 23:03 Resp 18 06/09/18 23:03 BP 135/92 H 06/09/18 23:03 Pulse Ox 100 06/09/18 23:03 - Medical History PMH: Anxiety, Bipolar Disorder, Depression, Fractures, HTN, Personality Disorder, Pneumonia, Schizophrenia, Seizures Denies: Diabetes, Hepatitis, HIV, Chronic Kidney Disease, Sexually Transmitted Disease - Surgical History Surgical History: No Surg Hx - Family History Family History: States: Unknown Family Hx - Immunization History Hx Tetanus Toxoid Vaccination: No Hx Influenza Vaccination: Yes Hx Pneumococcal Vaccination: No - Home Medications Home Medications: Ambulatory Orders Medication Instructions Recorded Lisinopril [Zestril] 10 mg PO DAILY tab 04/29/18 Phenobarbital [PHENobarbital Tab] 32.4 mg PO BID tab 04/29/18 carBAMazepine [Tegretol] 200 mg PO TID tab 04/29/18 - Allergies Allergies/Adverse Reactions: Allergies Allergy/AdvReac Type Severity Reaction Status Date / Time lactose Allergy DIARRHEA Verified 06/08/18 00:32 fluphenazine [From Prolixin] AdvReac SWELLING Verified 06/08/18 00:32 haloperidol [From Haldol] AdvReac NAUSEA Verified 06/08/18 00:32 Review of Systems ROS Statement: Except As Marked, All Systems Reviewed And Found Negative Physical Exam - Reviewed Nursing Documentation Reviewed: Yes Vital Signs Reviewed: Yes - Physical Exam Appears: Positive for: No Acute Distress Head Exam: Positive for: ATRAUMATIC, NORMOCEPHALIC Skin: Positive for: Normal Color, Warm, Dry Eye Exam: Positive for: Normal appearance, EOMI, PERRL Neck: Positive for: Painless ROM Cardiovascular/Chest: Positive for: Regular Rate, Rhythm. Negative for: Murmur Respiratory: Positive for: Normal Breath Sounds. Negative for: Respiratory Distress Gastrointestinal/Abdominal: Positive for: Normal Exam, Soft. Negative for: Tenderness, Guarding, Rebound Extremity: Positive for: Normal ROM (upper and lower extremities). Negative for: Deformity, Swelling Neurologic/Psych: Positive for: Alert, Other (slurred speech) - ECG O2 Sat by Pulse Oximetry: 100 (RA) Pulse Ox Interpretation: Normal Medical Decision Making Medical Decision Making: Time: 23:04 Initial Impression: 42 y/o male with alcohol intoxication Initial Plan: --Alcohol serum --Drug screen, urine --Reevaluation 05:40 Upon provider reevaluation patient is awake, alert and orientedx3 with steady gait and fluent speech. Patient is medically stable, and requires no further treatment in the ED at this time. Patient will be discharged home, diagnosis of polysubstance abuse. Counseling was provided and all questions were answered regarding diagnosis. There is agreement to discharge plan. Scribe Attestation: Documented by Mu Brown, acting as a scribe for Denis Simon MD. Provider Scribe Attestation: All medical record entries made by the Scribe were at my direction and personally dictated by me. I have reviewed the chart and agree that the record accurately reflects my personal performance of the history, physical exam, medical decision making, and the department course for this patient. I have also personally directed, reviewed, and agree with the discharge instructions and disposition. Disposition - Clinical Impression Clinical Impression: Polysubstance abuse - Disposition Disposition: Routine/Home Disposition Time: 05:40 Condition: STABLE Instructions: Polysubstance Abuse Forms: [employer] (Turks [place] Islander)
[2018-06-10 00:13] LABS: BARBITURATES, UR POSITIVE (NEGATIVE); BENZODIAZEPINES, UR NEGATIVE (NEGATIVE); OPIATES, UR POSITIVE (NEGATIVE); PHENCYCLIDINE, UR NEGATIVE (NEGATIVE)
== END 2018-06-10 05:44 | disposition home or self-care (01) ==
LOC: H.ER 23:01
DX: F19.10 Other psychoactive substance abuse, uncomplicated (principal); F20.9 Schizophrenia, unspecified; F31.9 Bipolar disorder, unspecified; F41.9 Anxiety disorder, unspecified; I10 Essential (primary) hypertension

== ENCOUNTER 2018-12-02 00:45 | Emergency (ER) | payer MEDICAID ==
[2018-12-02 00:46] VITALS: BMI 24.3
--- NOTE | 2018-12-02 02:23 | ED PDOC ---
HPI: Psych/Substance Abuse Time Seen by Provider: 12/02/18 01:00 Chief Complaint (Nursing): Psychiatric Evaluation Chief Complaint (Provider): psych/detox Additional Complaint(s): 43 m with history of subtance abuse and psych history, c/o using multiple bags of heroin today and feeling that if he doesnt get detox he will want to hurt himself. Past Medical History Vital Signs: Last Vital Signs Temp 98.2 F 12/02/18 00:48 Pulse 84 12/02/18 00:48 Resp 16 12/02/18 00:48 BP 130/94 H 12/02/18 00:48 Pulse Ox 100 12/02/18 00:48 - Medical History PMH: Anxiety, Bipolar Disorder, Depression, Fractures, Hepatitis, HTN, Personality Disorder, Pneumonia, Schizophrenia, Seizures Denies: Diabetes, HIV, Chronic Kidney Disease, Sexually Transmitted Disease - Surgical History Surgical History: No Surg Hx - Family History Family History: States: Unknown Family Hx - Social History Current smoker - smoking cessation education provided: No Alcohol: < 2 Drinks/Day Drugs: Opiates - Immunization History Hx Tetanus Toxoid Vaccination: No Hx Influenza Vaccination: No Hx Pneumococcal Vaccination: No - Home Medications Home Medications: Ambulatory Orders Medication Instructions Recorded Divalproex [Depakote DR(*BID*)] 500 mg PO TID #90 tcp 08/24/18 Phenobarbital [PHENobarbital Tab] 32.4 mg PO BID #60 tab 08/24/18 carBAMazepine [Tegretol] 200 mg PO TID #90 tab 08/24/18 levETIRAcetam [Keppra] 500 mg PO BID #60 tab 08/24/18 - Allergies Allergies/Adverse Reactions: Allergies Allergy/AdvReac Type Severity Reaction Status Date / Time lactose Allergy DIARRHEA Verified 12/03/18 23:09 fluphenazine [From Prolixin] AdvReac SWELLING Verified 12/03/18 23:09 haloperidol [From Haldol] AdvReac NAUSEA Verified 12/03/18 23:09 Physical Exam - Reviewed Nursing Documentation Reviewed: Yes Vital Signs Reviewed: Yes - Physical Exam Appears: Positive for: Well, Non-toxic, No Acute Distress Head Exam: Positive for: ATRAUMATIC, NORMAL INSPECTION, NORMOCEPHALIC Skin: Positive for: Normal Color, Warm, DRY Eye Exam: Positive for: Normal appearance ENT: Positive for: Normal ENT Inspection Neck: Positive for: Normal, Painless ROM Cardiovascular/Chest: Positive for: Regular Rate, Rhythm Respiratory: Positive for: CNT, Normal Breath Sounds Gastrointestinal/Abdominal: Positive for: Normal Exam, Soft Back: Positive for: Normal Inspection Extremity: Positive for: Normal ROM Neurological/Psych: Positive for: Awake, Alert, Normal Tone - Laboratory Results Result Diagrams: 12/02/18 04:18 12/02/18 04:18 - ECG O2 Sat by Pulse Oximetry: 100 Medical Decision Making Medical Decision Making: -noted labs, positive opiates and cocaine slight anemia noted on labs pt is medically stable for crisis eval [address] gonzalez Disposition - Clinical Impression Clinical Impression: Heroin abuse, Bipolar disorder - Patient ED Disposition Is Patient to be Admitted: Transfer of Care - Disposition Disposition: Transfer of Care Disposition Time: 07:00 Condition: STABLE Instructions: Bipolar Disorder, Opioid Use Disorder Forms: [employer] (Dutch) Patient Signed Over To: Sola Gonzalez
[2018-12-02 03:53] LABS: URINE BILIRUBIN NEGATIVE (NEGATIVE); URINE BLOOD NEGATIVE (NEGATIVE); URINE CLARITY CLEAR (Clear); URINE COLOR YELLOW (YELLOW); URINE GLUCOSE (UA) NEG (NEGATIVE); URINE LEUKOCYTE ESTERASE NEG Leu/uL (Negative); URINE PROTEIN NEGATIVE (NEGATIVE); URINE UROBILINOGEN 0.2-1.0 mg/dL (0.2-1.0)
[2018-12-02 04:10] LABS: BARBITURATES, UR NEGATIVE (NEGATIVE); BENZODIAZEPINES, UR NEGATIVE (NEGATIVE); OPIATES, UR POSITIVE (NEGATIVE); PHENCYCLIDINE, UR NEGATIVE (NEGATIVE)
[2018-12-02 04:39] LABS: ACETAMINOPHEN < 10.0 ug/ml (10.0-30.0); BLOOD UREA NITROGEN 15 mg/dl (9-20); CALCIUM 9.2 mg/dL (8.4-10.2); GFR NON-AFRICAN AMERICAN > 60; SALICYLATE < 1.0 mg/dl
[2018-12-02 04:40] LABS: BASO % 0.7 % (0.0-2.0); EOS # 0.1 K/uL (0.0-0.7); EOS % 2.5 % (0.0-4.0); HEMOGLOBIN 9.4 g/dL (12.0-18.0); LYMPH # 2.5 K/uL (1.0-4.3); MEAN CELL VOLUME 70.4 fl (80.0-94.0); MEAN CORPUSCULAR HEMOGLOBIN 21.4 pg (27.0-31.0); MEAN CORPUSCULAR HGB CONC 30.3 g/dL (33.0-37.0); MEAN PLATELET VOLUME 8.2 fl (7.2-11.7); MONO # 0.6 K/uL (0.0-0.8); MONO % 9.6 % (0.0-10.0); NEUT # 2.5 K/uL (1.8-7.0); NEUT % 44.2 % (50.0-75.0); RBC 4.38 Mil/uL (4.40-5.90); RED CELL DISTRIBUTION WIDTH 20.4 % (11.5-14.5); WHITE BLOOD COUNT 5.8 K/uL (4.8-10.8)
--- NOTE | 2018-12-02 07:22 | ED PDOC ---
- Laboratory Results Result Diagrams: 12/02/18 04:18 12/02/18 04:18 Lab Results: Urine Color Yellow (YELLOW) 12/02/18 03:43 Urine Clarity Clear (Clear) 12/02/18 03:43 Urine pH 6.0 (5.0-8.0) 12/02/18 03:43 Ur Specific [place] 1.013 (1.003-1.030) 12/02/18 03:43 Urine Protein Negative mg/dL (NEGATIVE) 12/02/18 03:43 Urine Glucose (UA) Neg mg/dL (NEGATIVE) 12/02/18 03:43 Urine Ketones Negative mg/dL (NEGATIVE) 12/02/18 03:43 Urine Blood Negative (NEGATIVE) 12/02/18 03:43 Urine Nitrate Negative (NEGATIVE) 12/02/18 03:43 Urine Bilirubin Negative (NEGATIVE) 12/02/18 03:43 Urine Urobilinogen 0.2-1.0 mg/dL (0.2-1.0) 12/02/18 03:43 Ur Leukocyte Esterase Neg Elsie/uL (Negative) 12/02/18 03:43 Urine RBC (Auto) < 1 /hpf (0-3) 12/02/18 03:43 Urine Microscopic WBC 1 /hpf (0-5) 12/02/18 03:43 Hyaline Casts 3-5 /hpf (0-2) H 12/02/18 03:43 - ECG O2 Sat by Pulse Oximetry: 100 (RA) Pulse Ox Interpretation: Normal Medical Decision Making Medical Decision Makin Patient signed out to me by Dr. Cabrera pending crisis evaluation. Patient resting in room comfortably, vital signs are stable. 0922 Per dairy farmworker, patient to be screened for [facility] admission. 1055 Patient walked out of room, is aggressive and shouting at staff. Patient angrily stating "I want to get the hell out of here." Code whittaker called due to concern for safety. Attempts to descalate by speaking to patient were unsuccessful; Dr. Nogueira at bedside and attempting to calm patient down but unsuccessful. 1100 Patient with persistent agitation, haldol and ativan IM given to relieve agitation Patient placed on residential monitor, 1:1 observation continued 1430 Patient resting in room, respirations unlabored, and is in no acute distress. 1500 patient signed out to Dr. Mohr pending [facility] evaluation ScribeAttestation: Documented byFatou Vallejo, acting as a scribe for Sola Gonzalez MD. Provider ScribeAttestation: All medical record entries made by the Scribe were at my direction and personally dictated by me. I have reviewed the chart and agree that the record accurately reflects my personal performance of the history, physical exam, medical decision making, and the department course for this patient. I have also personally directed, reviewed, and agree with the discharge instructions and disposition. Disposition - POA Present On Arrival: None - Disposition Disposition: Routine/Home Disposition Time: 15:00 Condition: STABLE Forms: [employer] (Georgian) Patient Signed Over To: Verena Mohr
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
--- NOTE | 2018-12-02 15:12 | ED PDOC ---
- Laboratory Results Result Diagrams: 12/02/18 04:18 12/02/18 04:18 Lab Results: Urine Color Yellow (YELLOW) 12/02/18 03:43 Urine Clarity Clear (Clear) 12/02/18 03:43 Urine pH 6.0 (5.0-8.0) 12/02/18 03:43 Ur Specific [place] 1.013 (1.003-1.030) 12/02/18 03:43 Urine Protein Negative mg/dL (NEGATIVE) 12/02/18 03:43 Urine Glucose (UA) Neg mg/dL (NEGATIVE) 12/02/18 03:43 Urine Ketones Negative mg/dL (NEGATIVE) 12/02/18 03:43 Urine Blood Negative (NEGATIVE) 12/02/18 03:43 Urine Nitrate Negative (NEGATIVE) 12/02/18 03:43 Urine Bilirubin Negative (NEGATIVE) 12/02/18 03:43 Urine Urobilinogen 0.2-1.0 mg/dL (0.2-1.0) 12/02/18 03:43 Ur Leukocyte Esterase Neg Elsie/uL (Negative) 12/02/18 03:43 Urine RBC (Auto) < 1 /hpf (0-3) 12/02/18 03:43 Urine Microscopic WBC 1 /hpf (0-5) 12/02/18 03:43 Hyaline Casts 3-5 /hpf (0-2) H 12/02/18 03:43 - ECG O2 Sat by Pulse Oximetry: 100 (RA) Pulse Ox Interpretation: Normal Medical Decision Making Medical Decision Makin Patient signed out to me by Dr. Gonzalez pending [facility] screen Patient noted to be resting comfortably, is in no acute distress. 1900 Sleeping. Continues to be medically stable and pending [facility] screen. 2300 Sleeping. Continues to be medically stable and pending [facility] screen. - ScribeAttestation: Documented byFatou Vallejo, acting as a scribe for Verena Mohr MD. Provider ScribeAttestation: All medical record entries made by the Scribe were at my direction and personally dictated by me. I have reviewed the chart and agree that the record accurately reflects my personal performance of the history, physical exam, medical decision making, and the department course for this patient. I have also personally directed, reviewed, and agree with the discharge instructions and disposition. Disposition - Clinical Impression Clinical Impression: Heroin abuse, Bipolar disorder - POA Present On Arrival: None - Disposition Disposition: Transfer of Care Disposition Time: 00:00 Condition: STABLE Instructions: Bipolar Disorder, Opioid Use Disorder Forms: [employer] (Yoruba) Patient Signed Over To: Jose Alfredo Johnson Handoff Comments: pending [facility] evalaution
--- NOTE | 2018-12-02 17:21 | CARD ---
APPROVED REPORT Date of service: 12/02/2018 EKG Measurement Heart [id number] <Conclusion> Normal sinus rhythm Normal ECG
[2018-12-02 23:12] VITALS: RESP 17
--- NOTE | 2018-12-03 00:17 | ED PDOC ---
- Laboratory Results Result Diagrams: 12/02/18 04:18 12/02/18 04:18 Lab Results: Urine Color Yellow (YELLOW) 12/02/18 03:43 Urine Clarity Clear (Clear) 12/02/18 03:43 Urine pH 6.0 (5.0-8.0) 12/02/18 03:43 Ur Specific [place] 1.013 (1.003-1.030) 12/02/18 03:43 Urine Protein Negative mg/dL (NEGATIVE) 12/02/18 03:43 Urine Glucose (UA) Neg mg/dL (NEGATIVE) 12/02/18 03:43 Urine Ketones Negative mg/dL (NEGATIVE) 12/02/18 03:43 Urine Blood Negative (NEGATIVE) 12/02/18 03:43 Urine Nitrate Negative (NEGATIVE) 12/02/18 03:43 Urine Bilirubin Negative (NEGATIVE) 12/02/18 03:43 Urine Urobilinogen 0.2-1.0 mg/dL (0.2-1.0) 12/02/18 03:43 Ur Leukocyte Esterase Neg Elsie/uL (Negative) 12/02/18 03:43 Urine RBC (Auto) < 1 /hpf (0-3) 12/02/18 03:43 Urine Microscopic WBC 1 /hpf (0-5) 12/02/18 03:43 Hyaline Casts 3-5 /hpf (0-2) H 12/02/18 03:43 - ECG O2 Sat by Pulse Oximetry: 100 (RA) Pulse Ox Interpretation: Normal Medical Decision Making Medical Decision Making: Time: 0000 Patient transferred to [place] by Dr. Mohr, pending [facility] [place]. [address] Nogueira, psychiatric javascript application developer, and [facility] [place] with diagnosis of opioid use disorder and bipolar disorder. Patient is awake, alert, calm, eating a full plate of food. Stable and well appearing. Scribe Attestation: Documented by Camila Hoover, acting as a scribe for Jose Alfredo Johnson MD. Provider Scribe Attestation: All medical record entries made by the Scribe were at my direction and personally dictated by me. I have reviewed the chart and agree that the record accurately reflects my personal performance of the history, physical exam, medical decision making, and the department course for this patient. I have also personally directed, reviewed, and agree with the discharge instructions and disposition. Disposition - Clinical Impression Clinical Impression: Heroin abuse, Bipolar disorder - POA Present On Arrival: None - Disposition Referrals: [facility] [Outside] Disposition: Routine/Home Disposition Time: 02:05 Condition: STABLE Instructions: Bipolar Disorder, Opioid Use Disorder Forms: [employer] (Khmer)
[2018-12-03 02:33] VITALS: BP 138/90; PULSE 58; TEMP 98.3
[2018-12-03 05:45] VITALS: O2SAT 100
== END 2018-12-03 02:32 | disposition home or self-care (01) ==
LOC: H.ER 00:45
DX: F11.10 Opioid abuse, uncomplicated (principal); F31.9 Bipolar disorder, unspecified; F20.9 Schizophrenia, unspecified; F41.9 Anxiety disorder, unspecified; I10 Essential (primary) hypertension; Z91.19 Patient's noncompliance with other medical treatment and regimen; Z88.8 Allergy status to other drugs, medicaments and biological substances; R56.9 Unspecified convulsions
CPT/HCPCS: 80048; 80320; 80324; 80329; 80345; 80346; 80349; 80353; 80358; 80361; 81003; 82948; 83992; 85025; 93005; 96372; 99285; J1630; J2060